=== PATIENT | female | born 1950 | race Two or more races ===

== ENCOUNTER 2020-05-11 08:40 | Outpatient (CLI) | payer BC | END 2020-05-11 23:59 | disposition home or self-care (01) | LOC: WOU 08:40 | PROVIDERS: ATTEND Specialist | DX: T86.821 Skin graft (allograft) (autograft) failure (principal); C50.911 Malignant neoplasm of unspecified site of right female breast; Z90.13 Acquired absence of bilateral breasts and nipples | CPT/HCPCS: A6253; G0463 ==

== ENCOUNTER 2020-05-13 08:05 | Outpatient (CLI) | payer BC | END 2020-05-13 23:59 | disposition home or self-care (01) | LOC: RAD 08:05 | PROVIDERS: ATTEND Specialist | DX: R05 Cough (principal); M81.0 Age-related osteoporosis without current pathological fracture; M41.85 Other forms of scoliosis, thoracolumbar region | CPT/HCPCS: 71045-TC ==

== ENCOUNTER 2020-05-25 08:25 | Outpatient (CLI) | payer BC | END 2020-05-25 23:59 | disposition home or self-care (01) | LOC: WOU 08:25 | PROVIDERS: ATTEND Specialist | DX: T86.821 Skin graft (allograft) (autograft) failure (principal); C50.911 Malignant neoplasm of unspecified site of right female breast; I26.94 Multiple subsegmental thrombotic pulmonary emboli without acute cor pulmonale; Z79.01 Long term (current) use of anticoagulants | CPT/HCPCS: G0463 ==